=== PATIENT | male | born 1940 | race Caucasian/White ===

== ENCOUNTER 2021-01-16 15:31 | Emergency (ER) | payer MEDICARE ==
[~2021-01-16] VITALS: Ht 182.8 cm; Wt 104.3 kg
[2021-01-16 16:00] LABS: BASO % 0.4 % (0.0-1.0); EOS # 0.3 10*3/uL (0.0-0.4); EOS % 3.8 % (1.0-4.0); LYMPH # 2.6 10*3/uL (1.3-4.4); LYMPH % 34.6 % (27.0-41.0); MEAN CELL VOLUME 93.3 fl (80.0-94.0); MEAN CORPUSCULAR HGB 30.9 pg (27.0-31.0); MEAN CORPUSCULAR HGB CONC 33.1 g/dl (33.0-37.0); MEAN PLATELET VOLUME 10.5 fl (9.6-12.3); MONO # 0.8 10*3/uL (0.1-1.0); MONO % 10.1 % (3.0-9.0); NEUT # 3.9 10*3/uL (2.3-7.9); NEUT % 50.8 % (47.0-73.0); PLATELET COUNT AUTOMATED 184 10*3/uL (130-400); RED BLOOD COUNT 4.18 10*6/uL (4.50-5.90); RED CELL DISTRI WIDTH 13.5 % (0-14.5); WHITE BLOOD COUNT 7.6 10*3/uL (4.8-10.8)
[2021-01-16 16:12] LABS: ACT PARTIAL THROMBO TIME 27.8 SECONDS (20.0-32.1); INTERNATIONAL NORM RATIO 1.1 (2.0-3.5)
[2021-01-16 16:17] LABS: ALBUMIN 2.9 gm/dl (3.1-4.5); ALKALINE PHOSPHATASE 102 U/L (45-117); BUN 18 mg/dl (7-24); CHLORIDE 108 mmol/L (98-107); CREATININE 1.22 mg/dL (0.70-1.30); POTASSIUM 3.5 mmol/L (3.5-5.1); SGOT/AST 14 IU/L (3-35); SGPT/ALT 21 U/L (12-78); SODIUM 141 mmol/L (136-145); TOTAL PROTEIN 7.5 gm/dL (6.4-8.2)
[2021-01-16 16:18] LABS: TROPONIN I < 0.015 ng/ml (<0.045)
[2021-01-16 18:34] VITALS: BP 168/96; BP 170/90; BP 176/95; BP 178/92; BP 178/95; BP 180/105; BP 190/106
== END 2021-01-16 18:53 | disposition short-term general hospital (02) ==
LOC: ED 15:31
PROVIDERS: Emergency Medicine
DX: I45.5 Other specified heart block (principal); R55 Syncope and collapse; I10 Essential (primary) hypertension; E78.00 Pure hypercholesterolemia, unspecified

== ENCOUNTER → 2021-03-12 | Outpatient (CLI) | payer MEDICARE ==
[2021-03-12 11:03] LABS: BUN 12 mg/dl (7-24); CHLORIDE 108 mmol/L (98-107); CREATININE 1.01 mg/dL (0.70-1.30); SODIUM 143 mmol/L (136-145)
== END | disposition home or self-care (01) ==
LOC: LAB 10:13
PROVIDERS: ATTEND Student in an Organized Health Care Education/Training Program
DX: Z95.1 Presence of aortocoronary bypass graft (principal)

== ENCOUNTER 2021-04-12 14:00 | Inpatient (IN) | payer OTHER ==
[~2021-04-12] VITALS: Ht 182.8 cm; Wt 82.2 kg
[2021-04-12 14:49] VITALS: BP 115/94
[2021-04-12 16:06] LABS: BASO % 0.2 % (0.0-1.0); EOS # 0.4 10*3/uL (0.0-0.4); EOS % 5.3 % (1.0-4.0); HEMATOCRIT 33.2 % (42.0-52.0); LYMPH # 1.9 10*3/uL (1.3-4.4); MEAN CORPUSCULAR HGB 30.3 pg (27.0-31.0); MEAN CORPUSCULAR HGB CONC 32.5 g/dl (33.0-37.0); MONO # 1.2 10*3/uL (0.1-1.0); NEUT # 4.5 10*3/uL (2.3-7.9); NEUT % 55.9 % (47.0-73.0); PLATELET COUNT AUTOMATED 278 10*3/uL (130-400); RED BLOOD COUNT 3.57 10*6/uL (4.50-5.90); RED CELL DISTRI WIDTH 15.4 % (0-14.5); WHITE BLOOD COUNT 8.1 10*3/uL (4.8-10.8)
[2021-04-12 16:26] LABS: ALBUMIN 2.6 gm/dl (3.1-4.5); ALKALINE PHOSPHATASE 86 U/L (45-117); BUN 17 mg/dl (7-24); CHLORIDE 106 mmol/L (98-107); CREATININE 1.05 mg/dL (0.70-1.30); POTASSIUM 3.5 mmol/L (3.5-5.1); SGOT/AST 11 IU/L (3-35); SGPT/ALT 11 U/L (12-78); SODIUM 137 mmol/L (136-145); TOTAL PROTEIN 8.1 gm/dL (6.4-8.2)
[2021-04-12 16:29] LABS: TROPONIN I < 0.015 ng/ml (<0.045)
[2021-04-12 20:04] LABS: BILIRUBIN Negative (Negative); BLOOD Negative (Negative); CLARITY Clear (Clear); COLOR Yellow (Yellow); GLUCOSE Negative (Negative); KETONE Trace (Negative); LEUKO ESTERASE Negative (Negative); NITRITE Negative (Negative); SPECIFIC GRAVITY 1.025 (1.001-1.030)
[2021-04-12 20:16] LABS: BACTERIA TRACE; EPITHELIAL CELLS 0-2; RBC 0-2 rbc/hpf (0-2); WBC 0-2 wbc/hpf (0-5)
[2021-04-12 20:17] LABS: MUCOUS 1+
[2021-04-12] MEDS ORDERED: ASPIRIN ADULT L81 M2 PO (21:12)
[2021-04-12] MEDS ORDERED: MIRTAZAPINE15 M2 PO (21:12)
[2021-04-12] MEDS ORDERED: PEPCID20 MG PO (21:12)
[2021-04-12] MEDS ORDERED: LIPITOR40 MG PO (21:13)
[2021-04-12] MEDS ORDERED: LASIX20 MG PO (21:13)
[2021-04-12] MEDS ORDERED: TRAMADOL HCL50 MG PO (21:14)
[2021-04-12] MEDS ORDERED: FERROUS SULFAT325 MG PO (21:14)
[2021-04-12] MEDS ORDERED: VITAMIN C500 M8 PO (21:15)
[2021-04-12] MEDS ORDERED: AMLODIPINE BESY10 MG PO (21:15)
[2021-04-12] MEDS ORDERED: LOPRESSOR25 MG PO (21:16)
[2021-04-12] MEDS ORDERED: NATURE'S BLEND F1 MG PO (21:17)
[2021-04-12] MEDS ORDERED: CLOPIDOGREL75 MG PO (21:20)
[2021-04-12] MEDS ORDERED: NYSTATIN1 EAC3 MC (21:21)
[2021-04-12] MEDS ORDERED: FISH OIL 1,0001 EAC4 PO (21:22)
[2021-04-12] MEDS ORDERED: COLACE100 MG PO (21:25)
[2021-04-12] MEDS ORDERED: Ipratropium Brom3 ML INH (21:25)
[2021-04-13 04:23] VITALS: BP 121/62
[2021-04-13 05:36] LABS: ALBUMIN 2.2 gm/dl (3.1-4.5); ALKALINE PHOSPHATASE 76 U/L (45-117); BUN 14 mg/dl (7-24); CHLORIDE 108 mmol/L (98-107); CHOLESTEROL 124 mg/dL (<200); CREATININE 0.91 mg/dL (0.70-1.30); FREE T4 1.16 ng/dl (0.76-1.46); LDL CHOLESTEROL 84 mg/dL (9-159); POTASSIUM 3.4 mmol/L (3.5-5.1); SGOT/AST 10 IU/L (3-35); SGPT/ALT 10 U/L (12-78); SODIUM 138 mmol/L (136-145); TRIGLYCERIDES 63 mg/dl (<150)
[2021-04-13 06:04] LABS: BASO % 0.3 % (0.0-1.0); EOS # 0.5 10*3/uL (0.0-0.4); HEMATOCRIT 31.9 % (42.0-52.0); LYMPH % 25.8 % (27.0-41.0); MEAN CELL VOLUME 94.1 fl (80.0-94.0); MEAN CORPUSCULAR HGB 30.1 pg (27.0-31.0); MEAN PLATELET VOLUME 10.5 fl (9.6-12.3); MONO # 1.1 10*3/uL (0.1-1.0); NEUT % 53.2 % (47.0-73.0); PLATELET COUNT AUTOMATED 275 10*3/uL (130-400); RED BLOOD COUNT 3.39 10*6/uL (4.50-5.90); RED CELL DISTRI WIDTH 15.4 % (0-14.5); WHITE BLOOD COUNT 7.6 10*3/uL (4.8-10.8)
[2021-04-13 06:36] LABS: ACT PARTIAL THROMBO TIME 28.2 SECONDS (20.0-32.1); INTERNATIONAL NORM RATIO 1.1 (2.0-3.5)
[2021-04-13 07:40] VITALS: BP 112/58
[2021-04-13 08:45] LABS: VITAMIN D, 25-HYDROXY 50.4 ng/mL (30-100)
[2021-04-13 12:00] VITALS: BP 155/67
[2021-04-13 16:00] VITALS: BP 158/68
[2021-04-13 20:00] VITALS: BP 105/47
[2021-04-14] VITALS: BP 141/71
[2021-04-14 07:51] LABS: BASO % 0.3 % (0.0-1.0); EOS # 0.4 10*3/uL (0.0-0.4); EOS % 6.4 % (1.0-4.0); HEMATOCRIT 32.9 % (42.0-52.0); LYMPH # 1.5 10*3/uL (1.3-4.4); LYMPH % 22.6 % (27.0-41.0); MEAN CELL VOLUME 91.9 fl (80.0-94.0); MEAN CORPUSCULAR HGB 29.6 pg (27.0-31.0); MEAN CORPUSCULAR HGB CONC 32.2 g/dl (33.0-37.0); MEAN PLATELET VOLUME 9.9 fl (9.6-12.3); MONO % 14.6 % (3.0-9.0); NEUT # 3.8 10*3/uL (2.3-7.9); NEUT % 55.7 % (47.0-73.0); PLATELET COUNT AUTOMATED 292 10*3/uL (130-400); RED BLOOD COUNT 3.58 10*6/uL (4.50-5.90); WHITE BLOOD COUNT 6.8 10*3/uL (4.8-10.8)
[2021-04-14 08:00] VITALS: BP 152/77
[2021-04-14 08:04] LABS: BUN 11 mg/dl (7-24); CHLORIDE 110 mmol/L (98-107); POTASSIUM 3.5 mmol/L (3.5-5.1); SODIUM 139 mmol/L (136-145)
[2021-04-14 12:00] VITALS: BP 117/59
[2021-04-14] MEDS ORDERED: DOXYCYCLINE100 M3 PO (12:06)
== END 2021-04-14 13:49 | disposition home health service (06) | DRG 602 ==
LOC: ED 14:00 → EDHOLD 17:28 → 4E 17:28
PROVIDERS: Emergency Medicine; Social Worker Clinical; ADMIT Internal Medicine; ATTEND Internal Medicine
PROC: 0HBKXZZ Excision of Right Lower Leg Skin, External Approach (ICD-10-PCS; principal; 2021-04-13)
DX: L03.115 Cellulitis of right lower limb (principal); E43 Unspecified severe protein-calorie malnutrition; I50.32 Chronic diastolic (congestive) heart failure; D64.9 Anemia, unspecified; I25.10 Atherosclerotic heart disease of native coronary artery without angina pectoris; D50.9 Iron deficiency anemia, unspecified; I50.9 Heart failure, unspecified; R26.2 Difficulty in walking, not elsewhere classified; I11.0 Hypertensive heart disease with heart failure; E78.2 Mixed hyperlipidemia; Z87.891 Personal history of nicotine dependence; Z95.1 Presence of aortocoronary bypass graft; Z68.24 Body mass index [BMI] 24.0-24.9, adult; S90.821D Blister (nonthermal), right foot, subsequent encounter; Y93.89 Activity, other specified; Y92.89 Other specified places as the place of occurrence of the external cause; Y99.8 Other external cause status